=== PATIENT | female | born 1985 | race Caucasian/White ===

== ENCOUNTER 2017-07-07 17:51 | Emergency (ER) | payer MEDICAID ==
[2017-07-07] MEDS ORDERED: CEPHALEXIN 250 MG CAPSULE PO STA (18:34)
[2017-07-07] MEDS ORDERED: HYDROcod/ACETAM 5/325 MG TABLET PO STA (18:34)
--- NOTE | 2017-07-07 18:34 | ED Physician Documentation ---
PD HPI HEENT - Stated complaint Stated Complaint: TOOTH PX - Chief complaint Chief Complaint: Heent - History obtained from History obtained from: Patient - History of Present Illness Timing - onset: How many days ago (couple) Timing - duration: Days Timing - details: Gradual onset, Still present Location: Tooth (right upper) Worsens: Swalllowing Associated symptoms: No: Fever, Trismus, Swollen nodes, Headache Recently seen: Not recently seen Review of Systems Constitutional: denies: Fever, Chills Nose: denies: Rhinorrhea / runny nose, Congestion Throat: denies: Sore throat Respiratory: denies: Dyspnea, Cough GI: denies: Nausea, Vomiting PD PAST MEDICAL HISTORY - Past Medical History Past Medical History: No Neuro: Headache/migraine - Past Surgical History Past Surgical History: No - Present Medications Home Medications: Ambulatory Orders Medication Instructions Recorded Confirmed Cephalexin [Keflex] 500 mg PO TID #20 capsule 07/07/17 HYDROcod/ACETAM 5/325 [[place] 5/325] 1 tab PO Q6H PRN #15 tablet 07/07/17 - Allergies Allergies/Adverse Reactions: Allergies Allergy/AdvReac Type Severity Reaction Status Date / Time No Known Drug Allergies Allergy Verified 07/07/17 18:12 - Social History Does the pt smoke?: Yes Smoking Status: Current every day smoker Does the pt drink ETOH?: No Does the pt have substance abuse?: No - Immunizations Immunizations are current?: Yes PD ED PE NORMAL - Vitals Vital signs reviewed: Yes - General General: Alert and oriented X 3, No acute distress, Well developed/nourished - HEENT HEENT: Pharynx benign. No: Dentition benign (right upper tooth with decay and tenderness to palpation, with gum swelling. ) - Neck Neck: Supple, no meningeal sign, No adenopathy - Cardiac Cardiac: RRR, No murmur - Respiratory Respiratory: Clear bilaterally - Neuro Neuro: Normal speech Results - Vitals Vitals: Oxygen O2 Source Room air PD MEDICAL DECISION MAKING - ED course Complexity details: considered differential, d/w patient Departure - Departure Disposition: 01 Home, Self Care Clinical Impression: Pain, dental, Periapical abscess Condition: Stable Record reviewed to determine appropriate education?: Yes Instructions: ED Tooth Pain Prescriptions: Cephalexin [Keflex] 500 mg PO TID #20 capsule HYDROcod/ACETAM 5/325 [[place] 5/325] 1 tab PO Q6H PRN #15 tablet PRN Reason: Pain Comments: Continue ibuprofen 2-3 times a day as an anti-inflammatory for now. This is still okay in the first 2 trimesters of . To it add Tylenol or hydrocodone if needed for pain. Cephalexin 3 times a day for a week for infection. Call your dentist and make an appointment first available for more definitive treatment of the tooth. Discharge Date/Time: 07/07/17 18:58
[2017-07-07] MEDS ORDERED: HYDROcod/ACETAM 5/325 MG TABLET ONE (18:50)
[2017-07-07] MEDS ORDERED: CEPHALEXIN 250 MG CAPSULE PO ONE (18:50)
[2017-07-07 18:58] VITALS: BP 100/58
== END 2017-07-07 18:58 | disposition home or self-care (01) ==
LOC: ED 17:51
DX: K04.7 Periapical abscess without sinus (principal); K08.89 Other specified disorders of teeth and supporting structures; F17.200 Nicotine dependence, unspecified, uncomplicated
CPT/HCPCS: 99283; A9270

== ENCOUNTER 2017-08-16 17:59 | Emergency (ER) | payer MEDICAID ==
[2017-08-16 18:34] LABS: BASOPHILS % (AUTO) 0.2 %; EOSINOPHILS % (AUTO) 0.1 %; HCT - HEMATOCRIT 35.5 % (37.0-47.0); HGB - HEMOGLOBIN 11.6 g/dL (12.0-16.0); LYMPHOCYTES # (AUTO) 1.8 10^3/uL (1.5-3.5); LYMPHOCYTES % (AUTO) 21.2 %; MEAN CORPUSCULAR HEMOGLOBIN 24.8 pg (27.0-31.0); MEAN CORPUSCULAR HGB CONC 32.6 g/dL (32.0-36.0); MEAN CORPUSCULAR VOLUME 75.9 fL (81.0-99.0); MEAN PLATELET VOLUME 7.7 fL (7.9-10.8); MONOCYTES # (AUTO) 0.5 10^3/uL (0.0-1.0); MONOCYTES % (AUTO) 6.3 %; NEUTROPHILS # (AUTO) 6.2 10^3/uL (1.5-6.6); NEUTROPHILS % (AUTO) 72.2 %; RED BLOOD COUNT 4.68 10^6/uL (4.20-5.40); UNCORRECTED WHITE BLOOD COUNT 8.5 x10^3/uL; WHITE BLOOD COUNT 8.5 x10^3/uL (4.8-10.8)
[2017-08-16 18:41] LABS: BILIRUBIN,URINE NEGATIVE (NEGATIVE); PH,URINE 6.5 PH (5.0-7.5)
--- NOTE | 2017-08-16 18:44 | ED Physician Documentation ---
PD HPI FEMALE - Stated complaint Stated Complaint: FEMALE - Chief complaint Chief Complaint: General - History obtained from History obtained from: Patient - History of Present Illness Timing - onset: Today Timing - duration: Days (1) Timing - details: Gradual onset Pain level max: 0 Pain level max: 0 Associated symptoms: Vaginal bleeding (spotting). 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) Recently seen: Not recently seen Review of Systems Constitutional: denies: Fever, Chills Ears: denies: Ear pain Nose: denies: Rhinorrhea / runny nose, Congestion Cardiac: denies: Chest pain / pressure Respiratory: denies: Cough GI: denies: Abdominal Pain, Nausea, Vomiting, Diarrhea : denies: Dysuria, Frequency, Hesitancy Skin: denies: Rash Musculoskeletal: denies: Neck pain, Back pain Neurologic: denies: Headache PD PAST MEDICAL HISTORY - Past Medical History Past Medical History: Yes Neuro: Headache/migraine - Past Surgical History Past Surgical History: No - Present Medications Home Medications: Ambulatory Orders Medication Instructions Recorded Confirmed Cephalexin [Keflex] 500 mg PO TID #20 capsule 07/07/17 08/16/17 HYDROcod/ACETAM 5/325 [[place] 5/325] 1 tab PO Q6H PRN #15 tablet 07/07/17 - Allergies Allergies/Adverse Reactions: Allergies Allergy/AdvReac Type Severity Reaction Status Date / Time No Known Drug Allergies Allergy Verified 07/07/17 18:12 - Social History Does the pt smoke?: No Smoking Status: Never smoker Does the pt drink ETOH?: No Does the pt have substance abuse?: No - Immunizations Immunizations are current?: Yes PD ED PE NORMAL - Vitals Vital signs reviewed: Yes - General General: Alert and oriented X 3, No acute distress, Well developed/nourished - HEENT HEENT: PERRL, Moist mucous membranes - Neck Neck: Supple, no meningeal sign - Cardiac Cardiac: RRR, Strong equal pulses - Respiratory Respiratory: No respiratory distress, Clear bilaterally - Abdomen Abdomen: Soft, Non tender, Non distended - Back Back: No CVA TTP - Derm Derm: Warm and dry, No rash - Extremities Extremities: No edema - Neuro Neuro: Alert and oriented X 3 - Psych Psych: Normal mood, Normal affect Results - Vitals Vitals: Vital Signs - 24 hr 08/16/17 08/16/17 18:01 19:16 Temperature 36.5 C Heart Rate 113 H 94 Respiratory 18 18 Rate Blood Pressure 124/78 119/71 O2 Saturation 100 99 Oxygen O2 Source Room air - Labs Labs: Laboratory Tests 08/16/17 08/16/17 08/16/17 18:20 18:26 18:26 WBC 8.5 RBC 4.68 Hgb 11.6 L Hct 35.5 L MCV 75.9 L MCH 24.8 L MCHC 32.6 RDW 17.0 H Plt Count 214 MPV 7.7 L Neut # 6.2 Lymph # 1.8 Walker # 0.5 Eos # 0.0 Baso # 0.0 Absolute Nucleated RBC 0.00 Nucleated RBC % 0.0 Sodium Potassium Chloride Carbon Dioxide Anion Gap BUN Creatinine Estimated GFR (MDRD) Glucose Calcium Total Bilirubin AST ALT Alkaline Phosphatase Total Protein Albumin Globulin Albumin/Globulin Ratio Lipase HCG, Quant Urine Color YELLOW Urine Clarity CLEAR Urine pH 6.5 Ur Specific [place] 1.010 Urine Protein NEGATIVE Urine Glucose (UA) NEGATIVE Urine Ketones 40 H Urine Occult Blood NEGATIVE Urine Nitrite NEGATIVE Urine Bilirubin NEGATIVE Urine Urobilinogen 0.2 (NORMAL) Ur Leukocyte Esterase NEGATIVE Ur Microscopic Review NOT INDICATED Urine Culture Comments NOT INDICATED Blood Type A POSITIVE 08/16/17 08/16/17 18:26 18:26 WBC RBC Hgb Hct MCV MCH MCHC RDW Plt Count MPV Neut # Lymph # Walker # Eos # Baso # Absolute Nucleated RBC Nucleated RBC % Sodium 131 L Potassium 3.2 L Chloride 100 L Carbon Dioxide 22 Anion Gap 9.0 BUN 5 L Creatinine 0.4 Estimated GFR (MDRD) 185 Glucose 89 Calcium 9.1 Total Bilirubin 0.7 AST 28 ALT 19 Alkaline Phosphatase 63 Total Protein 7.9 Albumin 4.1 Globulin 3.8 Albumin/Globulin Ratio 1.1 Lipase 31 HCG, Quant 49545.00 Urine Color Urine Clarity Urine pH Ur Specific [place] Urine Protein Urine Glucose (UA) Urine Ketones Urine Occult Blood Urine Nitrite Urine Bilirubin Urine Urobilinogen Ur Leukocyte Esterase Ur Microscopic Review Urine Culture Comments Blood Type PD MEDICAL DECISION MAKING - ED course Complexity details: reviewed results, re-evaluated patient, considered differential, d/w patient ED course: Patient is a 31-year-old female 8, para 7 who has not had any care with this . Thinks she is approximately 12-13 weeks along. Bedside ultrasound reveals an intrauterine with a heart rate in the 160s. Biparietal diameter is equal to a gestational age of 14 weeks 1 day, femur length is equal to 14 weeks 0 days. She has no abdominal cramping or leakage of fluid. Spotting resolved in the emergency department. We will have her follow-up with OB closely for further evaluation and care. She will return if she worsens. Patient also given potassium as her potassium was slightly low and this will increase both her fluid intake and salt intake to increase her sodium. Patient counseled regarding signs and symptoms for which I believe and urgent re-evaluation would be necessary. Patient with good understanding of and agreement to plan and is comfortable going home at this time This document was made in part using voice recognition software. While efforts are made to proofread this document, sound alike and grammatical errors may occur. Departure - Departure Disposition: 01 Home, Self Care Clinical Impression: Threatened , Hypokalemia Condition: Good Instructions: ED Miscarriage Poss Follow-Up: [facility] [Provider Group] - Within 1 week Comments: Your blood work and ultrasound are normal tonight other than a mild decrease in your sodium and potassium levels. Return if you worsen. Continue your vitamins and follow up with OB. Discharge Date/Time: 08/16/17 19:17
[2017-08-16 18:45] LABS: ALBUMIN/GLOBULIN RATIO 1.1 (1.0-2.2); BILIRUBIN,TOTAL 0.7 mg/dL (0.2-1.0); CALCIUM 9.1 mg/dL (8.5-10.3); CREATININE 0.4 mg/dL (0.4-1.0); POTASSIUM 3.2 mmol/L (3.5-5.0); TOTAL PROTEIN 7.9 g/dL (6.7-8.2)
[2017-08-16 18:45] LABS: UA CHARGE (STRIP ONLY) YES; UR CULTURE IF IND NOT INDICATED
[2017-08-16] MEDS ORDERED: POTASSIUM BICARB 25 MEQ TABLET PO STA (19:04)
[2017-08-16] MEDS ORDERED: POTASSIUM BICARB 25 MEQ TABLET PO ONE (19:16)
[2017-08-16 19:17] VITALS: BP 119/71
== END 2017-08-16 19:17 | disposition home or self-care (01) ==
LOC: ED 17:59
DX: O20.0 Threatened abortion (principal); O26.891 Other specified pregnancy related conditions, first trimester; E87.6 Hypokalemia; Z3A.14 14 weeks gestation of pregnancy
CPT/HCPCS: 36415; 80053; 81003; 83690; 84702; 85025; 86900; 86901; 99283; A9270; 81001; 87086

== ENCOUNTER 2017-09-23 12:31 | Emergency (ER) | payer MEDICAID ==
--- NOTE | 2017-09-23 13:10 | ED Physician Documentation ---
PD HPI FEMALE - Stated complaint Stated Complaint: GLF/PELV PX/19 WKS PRG - Chief complaint Chief Complaint: General - History obtained from History obtained from: Patient - History of Present Illness Timing - onset: Yesterday Timing - duration: Days (1) Timing - details: Abrupt onset, Still present (she had straddle injury of perineum yesterday when stepping down over tailgate of truck, slipped and fell. Pain at labial area and pubis, which is sanitary napkin machine tender today. Able to walk/bear weight. She is without care yet (recently moved from [place]). Denies vaginal bleeding.) Associated symptoms: Vaginal pain. 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), P, Prior vag delivery Similar symptoms before: Has not had sx before Recently seen: Not recently seen Review of Systems Constitutional: denies: Fever, Chills GI: denies: Nausea, Vomiting, Diarrhea : denies: Dysuria, Frequency, Vaginal bleeding PD PAST MEDICAL HISTORY - Past Medical History Neuro: Headache/migraine - Past Surgical History Past Surgical History: No - Present Medications Home Medications: Ambulatory Orders Medication Instructions Recorded Confirmed No Known Home Medications [No 09/23/17 09/23/17 Known Home Medications] - Allergies Allergies/Adverse Reactions: Allergies Allergy/AdvReac Type Severity Reaction Status Date / Time No Known Drug Allergies Allergy Verified 09/23/17 12:39 - Social History Does the pt smoke?: No Smoking Status: Never smoker Does the pt drink ETOH?: No Does the pt have substance abuse?: No - Immunizations Immunizations are current?: Yes PD ED PE NORMAL - Vitals Vital signs reviewed: Yes - General General: Alert and oriented X 3, No acute distress, Well developed/nourished - HEENT HEENT: Moist mucous membranes - Neck Neck: Supple, no meningeal sign, No adenopathy - Cardiac Cardiac: RRR, No murmur - Respiratory Respiratory: Clear bilaterally - Abdomen Abdomen: Normal bowel sounds, Soft, Non tender, Non distended, Other (gravid with fundus at umbilicus) - Female Female : Other (no external bruising nor swelling seen. Tender at left pubis area. No noted vaginal bleeding. Bedside U/S showing normal IUP with BPD showing EGA of 20.5 weeks. Normal FHR and movement. ) - Derm Derm: Normal color, Warm and dry - Extremities Extremities: No deformity, No tenderness to palpate, Normal ROM s pain - Neuro Neuro: Alert and oriented X 3, No motor deficit, Normal speech Results - Vitals Vitals: Vital Signs - 24 hr 09/23/17 09/23/17 12:36 13:54 Temperature 36.8 C 36.8 C Heart Rate 98 78 Respiratory 16 16 Rate Blood Pressure 127/64 126/76 O2 Saturation 100 98 Oxygen O2 Source Room air - Labs Labs: Laboratory Tests 09/23/17 13:30 Urine Color YELLOW Urine Clarity CLEAR Urine pH 8.0 H Ur Specific [place] 1.020 Urine Protein NEGATIVE Urine Glucose (UA) NEGATIVE Urine Ketones NEGATIVE Urine Occult Blood NEGATIVE Urine Nitrite NEGATIVE Urine Bilirubin NEGATIVE Urine Urobilinogen 0.2 (NORMAL) Ur Leukocyte Esterase NEGATIVE Ur Microscopic Review NOT INDICATED Urine Culture Comments NOT INDICATED PD MEDICAL DECISION MAKING - ED course Complexity details: considered differential, d/w patient, d/w data governance consultant (Dr. Peck air export operations agent for OB, will see patient next week. ) Departure - Departure Disposition: 01 Home, Self Care Clinical Impression: Contusion of pubic region Qualifiers: Encounter type: initial encounter Qualified Code(s): S30.1XXA - Contusion of abdominal wall, initial encounter Qualifiers: Weeks of gestation: 20 weeks Qualified Code(s): Z3A.20 - 20 weeks gestation of Pelvic straddle injury of soft tissues Qualifiers: Encounter type: initial encounter Qualified Code(s): S39.83XA - Other specified injuries of pelvis, initial encounter Condition: Stable Record reviewed to determine appropriate education?: Yes Instructions: ED Contusion Soft Tissue Follow-Up: Allie Peck DO [Provider Admit Priv/Credential] - [facility] [Provider Group] Comments: Use Tylenol if needed for pains. This is safe in . Your appears normal by ultrasound at this time. I talked with our SCRAP CRUSHER and they would like you to call the office today for an appointment. This will likely be scheduled for next week at this point. Drink lots of fluids. Return if any vaginal bleeding. There is no signs of blood in your urine so does not appear to be bladder or urethral injury. Discharge Date/Time: 09/23/17 14:05
[2017-09-23 13:43] LABS: BILIRUBIN,URINE NEGATIVE (NEGATIVE)
[2017-09-23 13:44] LABS: UA CHARGE (STRIP ONLY) YES; UR CULTURE IF IND NOT INDICATED
[2017-09-23 13:55] VITALS: BP 126/76
== END 2017-09-23 14:05 | disposition home or self-care (01) ==
LOC: ED 12:31
DX: O9A.212 Injury, poisoning and certain other consequences of external causes complicating pregnancy, second trimester (principal); S30.1XXA Contusion of abdominal wall, initial encounter; S39.83XA Other specified injuries of pelvis, initial encounter; W01.198A Fall on same level from slipping, tripping and stumbling with subsequent striking against other object, initial encounter; Z3A.20 20 weeks gestation of pregnancy
CPT/HCPCS: 81001; 81003; 87086; 99283

== ENCOUNTER 2018-05-02 20:10 | Outpatient (CLI) | payer MEDICAID ==
--- NOTE | 2018-05-03 08:54 | Ultrasound Report ---
Procedure Date: 05/02/2018 Accession Number: [id number] / [id number] Procedure: US - Pelvic w/Transvaginal CPT Code: FULL RESULT: EXAM: Pelvic w/Transvaginal DATE: 05/02/2018 8:59 PM CLINICAL HISTORY: ENCTR FOR ROUTINE CHECKING OF INTRAUTERINE CONTRAC COMPARISON: None. TECHNIQUE: Realtime transabdominal imaging performed to identify the uterus and adnexa and as an overview of other pelvic structures, followed by transvaginal imaging for better assessment of the endometrium and/or adnexa, with static image documentation. FINDINGS: Uterus: 8.9 x 4.4 x 5.0 cm, volume 102 cc. Anteverted position. Normal overall size and echotexture. Masses: None. Endometrium: Approximately 9 mm. Measurement is limited by endometrially positioned indwelling intrauterine device Cervix: Unremarkable. Right Ovary/Adnexa: 3.9 x 2.3 x 2.2 cm, volume 10.5 cc. Normal echotexture. Blood flow is present. Note is made of a dominant follicle with no suspicious adnexal mass. Left Ovary/Adnexa: 2.7 x 1.9 x 1.5 cm, volume 3.8 cc. Normal echotexture. Blood flow is present. No adnexal mass is seen. Free Fluid: None. Other: None. IMPRESSION: Intrauterine device within the endometrial canal. RADIA
== END 2018-05-02 20:11 | disposition home or self-care (01) ==
LOC: DI 20:10
PROVIDERS: ATTEND Obstetrics & Gynecology
DX: Z30.431 Encounter for routine checking of intrauterine contraceptive device (principal)
CPT/HCPCS: 76830; 76856